=== PATIENT | male | born 1970 | race African-American/Black ===

== ENCOUNTER 2020-06-03 09:34 | Emergency (ER) | payer OTHER ==
[~2020-06-03] VITALS: Ht 170.2 cm; Wt 79.4 kg
[2020-06-03] MEDS ORDERED: AMLODIPINE BESY10 MG PO (09:37)
[2020-06-03 10:05] LABS: BASOPHILS 1.1 % (0.0-2.0); EOSINOPHILS 4.5 % (0.0-3.0); HEMATOCRIT 39.3 % (42.0-52.0); HEMOGLOBIN 13.3 gm/dL (14.0-18.0); LYMPHOCYTES 25.9 % (24.0-44.0); MCHC 33.8 g/dL (28.0-37.0); MCV 82.6 fL (80.0-100.0); MONOCYTES 8.5 % (1.0-8.0); PLATELET COUNT 172 thou/uL (150-400); RBC 4.76 mil/uL (4.50-6.00); RDW 14.5 % (10.5-14.5)
[2020-06-03 10:14] LABS: ANION GAP 7 mmol/L (7-16); BUN 12 mg/dL (7-18); CALCIUM 9.2 mg/dL (8.5-10.1); CHLORIDE 101 mmol/L (98-107); CO2 28 mmol/L (21-32); GLUCOSE 142 mg/dL (74-106); POTASSIUM 3.7 mmol/L (3.5-5.1); SODIUM 136 mmol/L (136-145)
[2020-06-03 10:25] LABS: LIPASE 88 U/L (73-393); SGOT 39 U/L (15-37); SGPT 86 U/L (16-63); TOTAL BILIRUBIN 0.6 mg/dL (0.2-1.0); TOTAL PROTEIN 8.3 g/dL (6.4-8.2); TROPONIN-I <0.06 ng/mL (<0.06)
[2020-06-03 11:35] VITALS: BP 141/93
--- NOTE | 2020-06-05 13:37 | EKG ---
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
== END 2020-06-03 11:35 | disposition home or self-care (01) ==
LOC: ER 09:34
PROVIDERS: Emergency Medicine
DX: R07.89 Other chest pain (principal); I10 Essential (primary) hypertension; Z79.899 Other long term (current) drug therapy